=== PATIENT | male | born 1970 | race Caucasian/White ===

== ENCOUNTER 2025-03-21 19:16 | Emergency (ER) | payer OTHER ==
[~2025-03-21] VITALS: Ht 185.4 cm; Wt 95.5 kg
[2025-03-21 19:41] VITALS: BP 0/0; PULSE 0; RESP 16; O2SAT 0
== END 2025-03-21 22:14 ==
LOC: EMS 19:46
DX: G89.29 Other chronic pain (principal); M54.50 Low back pain, unspecified; J45.909 Unspecified asthma, uncomplicated; Z65.3 Problems related to other legal circumstances; V43.52XA Car driver injured in collision with other type car in traffic accident, initial encounter; Y93.89 Activity, other specified; Y92.410 Unspecified street and highway as the place of occurrence of the external cause; Y99.8 Other external cause status
CPT/HCPCS: 99283; Z7502